=== PATIENT | female | born 1990 | race Caucasian/White ===

== ENCOUNTER 2016-03-14 03:26 | Inpatient (IN) | END 2016-03-16 14:30 | disposition home or self-care (01) | DRG 775 | DX: O69.81X0 Labor and delivery complicated by cord around neck, without compression, not applicable or unspecified (principal); Z37.0 Single live birth; Z3A.38 38 weeks gestation of pregnancy ==

== ENCOUNTER 2016-11-18 16:19 | Emergency (ER) | payer OTHER ==
[~2016-11-18] VITALS: Ht 152.4 cm; Wt 53.5 kg
[2016-11-18 16:22] VITALS: Ht 152.4 cm; Wt 53.5 kg
--- NOTE | 2016-11-18 16:53 | ERD ---
ER Documentation Chief Complaint Date/Time DATE: 11/18/16 TIME: 16:49 Chief Complaint vag bleed started today (6 weeks ) HPI This is a 26-year-old female presenting to emerge department with vaginal bleeding while . Patient states she believes she is about 6 weeks with last menstrual period 10/06/2012. Patient is a A0. Patient states earlier today she had some pelvic cramping and some passage of bright red blood clots. Patient states she does not have regular menstrual flow. No vaginal discharge. No nausea or vomiting. Patient's FILLING HAND is Dr. Bateman and has not had an Ultrasound done yet she has an appointment with him on December 02, 2016. Patient had no complications with previous . No complications at . ROS All systems reviewed and are negative except as per history of present illness. Medications Home Meds No Active Prescriptions or Reported Meds Allergies Allergies: Coded Allergies: No Known Allergy (Unverified , 03/14/16) PMhx/Soc Medical and Surgical Hx: pt denies Medical Hx, pt denies Surgical Hx History of Surgery: No Hx Miscellaneous Medical Probl: No (NO MEDICAL PROBLEMS) Hx Alcohol Use: No Hx Substance Use: No Hx Tobacco Use: No Physical Exam Vitals Vital Signs Date Time Temp Pulse Resp B/P Pulse Ox O2 Delivery O2 Flow Rate FiO2 11/18/16 16:22 98.4 68 18 113/70 97 Physical Exam Const: alert, anxious Head: Atraumatic Eyes: Normal Conjunctiva ENT: Normal External Ears, Nose and Mouth. Neck: Full range of motion..~ No meningismus. Resp: Clear to auscultation bilaterally no wheezing, rhonchi or crackles. Cardio: Regular rate and rhythm, no murmurs Abd: Soft, non tender, non distended. Normal bowel sounds Skin: No petechiae or rashes Back: No midline or flank tenderness. No CVA tenderness. Ext: No cyanosis, or edema Neur: Awake and alert Psych: Normal Mood and Affect Result Diagram: 11/18/16 2597 Results 24 hrs Laboratory Tests Test 11/18/16 16:48 11/18/16 16:55 Urine Color YELLOW Urine Clarity SLIGHTLY CLOUDY Urine pH 5.0 Urine Specific [place] 1.018 Urine Ketones NEGATIVEmg/dL Urine Nitrite NEGATIVEmg/dL Urine Bilirubin NEGATIVEmg/dL Urine Urobilinogen NEGATIVEmg/dL Urine Leukocyte Esterase NEGATIVELeu/ul Urine Microscopic RBC > 182/HPF Urine Microscopic WBC 7/HPF Urine Squamous Epithelial Cells FEW/HPF Urine Mucus FEW/HPF Urine Hemoglobin 3+mg/dL Urine Glucose NEGATIVEmg/dL Urine Total Protein 1+mg/dl White Blood Count 9.810^3/ul Red Blood Count 4.3910^6/ul Hemoglobin 12.5g/dl Hematocrit 37.3% Mean Corpuscular Volume 85.0fl Mean Corpuscular Hemoglobin 28.5pg Mean Corpuscular Hemoglobin Concent 33.5g/dl Red Cell Distribution Width 12.5% Platelet Count 52984^3/UL Mean Platelet Volume 9.9fl Neutrophils % 61.3% Lymphocytes % 31.4% Monocytes % 7.1% Eosinophils % 0.0% Basophils % 0.1% Nucleated Red Blood Cells % 0.0/100WBC Neutrophils # 6.010^3/ul Lymphocytes # 3.110^3/ul Monocytes # 0.710^3/ul Eosinophils # 0.010^3/ul Basophils # 0.010^3/ul Nucleated Red Blood Cells # 0.010^3/ul Beta HCG, Quantitative 1128.8mIU/ml Procedures/[place] [id number] Radiology Main Line: [phone] DIAGNOSTIC IMAGING REPORT Patient: ROGERS SERRATO : 1990 Age: 26 Sex: F MR #: [id number] DOS: 11/18/16 1648 Ordering MD: TRUE DIEHL NP [facility] Room/Bed: PROCEDURE: US OB. CLINICAL INDICATION: Vaginal bleeding. Positive TECHNIQUE: Transabdominal and transvaginal views of the pelvis are available for review. COMPARISON: No prior studies are available for comparison. FINDINGS: Uterus: No evidence of masses and normal in size estimated at 7.2 x 4.7 x 3.9 cm. Endometrial cavity: Intrauterine gestational sac, yolk sac and pole are present with the following information: [place]-rump length: 0.31 cm heart rate: NOT DETECTED Gestational sac: 0.64 cm Ultrasound estimated gestational age: 5 weeks 4 days No evidence of subchorionic hemorrhage Right ovary/adnexa: Ovarian size is normal estimated at 2.8 x 1.6 x 1.5 cm. No ovarian or adnexal mass lesion is seen. Left ovary/adnexa: Ovarian size normal estimated at 0.8 x 1.4 x 1.1 cm. No ovarian or adnexal mass lesion is seen. Cul-de-sac: There is no free fluid. RPTAT:HJJR IMPRESSION: 1. Lack of detectable heart tones concerning for embryonic demise at an estimated gestational age of 5 days 4 days. Follow-up evaluation is recommended with correlation to serial serum beta HCG levels and possible repeat ultrasound. 2. Unremarkable ovaries and adnexa. MDM: This is a 26-year-old female presenting to emergency department for vaginal bleeding while . Patient believes she is about 6 weeks with last menstrual period 10/06/2016. Patient passed multiple bright red blood clots. Labs and urine ordered. CBC shows no significant anemia or infection. Type and Rh factor is . HCG is. UA shows. OB ultrasound reviewed by radiologist as a detectable heart tones concerning for embryonic demise at an estimated gestational age of 5 weeks and 4 days. Follow-up evaluation is recommended with correlation to serial serum beta-hCG levels and possible repeat ultrasound. Unremarkable ovaries and adnexa. Vital signs are stable. Differential diagnosis includes but not limited to ectopic , threatened , missed , normal , subchorionic hemorrhage , ruptured ovarian cyst, UTI or pyelonephritis. Instructed patient to return in 2 days for repeat lab work and ultrasound. Patient is appropriate for outpatient management. Instructed patient to follow- up here in the ED in 2 days. Return to ED sooner for any high fever, chest pain , difficulty breathing, shortness breath, wheezing, vomiting, diarrhea, abdominal pain or any new or worsening symptoms. Patient verbalizes understanding. All questions answered at discharge. Disclaimer: Inadvertent spelling and grammatical errors are likely due to EHR/ dictation software use and do not reflect on the overall quality of patient care. Also, please note that the electronic time recorded on this note does not necessarily reflect the actual time of the patient encounter. Departure Diagnosis: Primary Impression: Vaginal bleeding in patient at less than 20 weeks gestation Condition: Stable TRUE BRYANT NP Nov 18, 2016 16:53
[2016-11-18 17:09] LABS: BASOPHILS % 0.1 % (0.0-2.0); HEMATOCRIT 37.3 % (37.0-47.0); HEMOGLOBIN 12.5 g/dl (12.0-16.0); LYMPHOCYTES # 3.1 10^3/ul (0.8-2.9); LYMPHOCYTES % 31.4 % (15.0-51.0); MEAN CORPUSCULAR HEMOGLOBIN 28.5 pg (29.0-33.0); MEAN CORPUSCULAR HGB CONC 33.5 g/dl (32.0-37.0); MEAN PLATELET VOLUME 9.9 fl (7.4-10.4); MONOCYTE # 0.7 10^3/ul (0.3-0.9); MONOCYTES % 7.1 % (0.0-11.0); NEUTROPHILS % 61.3 % (39.0-77.0); PLATELET COUNT 279 10^3/UL (140-415); RED BLOOD COUNT 4.39 10^6/ul (4.20-5.40); RED CELL DISTRIBUTION WIDTH 12.5 % (11.5-14.5); WHITE BLOOD COUNT 9.8 10^3/ul (4.8-10.8)
[2016-11-18 17:19] LABS: ADD UMIC YES; UR ASCORBIC ACID NEGATIVE (NEGATIVE); UR BILIRUBIN (Dip) NEGATIVE (NEGATIVE); UR BLOOD (Dip) 3+ mg/dL (NEGATIVE); UR CLARITY SLIGHTLY CLOUDY (CLEAR); UR COLOR YELLOW (YELLOW); UR GLUCOSE (Dip) NEGATIVE (NEGATIVE); UR KETONES (Dip) NEGATIVE (NEGATIVE); UR LEUKOCYTE ESTERASE (Dip) NEGATIVE Leu/ul (NEGATIVE); UR MUCUS FEW /HPF (NONE SEEN); UR NITRITE (Dip) NEGATIVE (NEGATIVE); UR RBC > 182 /HPF (0-5); UR SPECIFIC GRAVITY (Dip) 1.018 (1.003-1.030); UR SQUAMOUS EPITHELIAL CELL FEW /HPF (FEW); UR TOTAL PROTEIN (Dip) 1+ mg/dl (NEGATIVE); UR UROBILINOGEN (Dip) NEGATIVE (NEGATIVE)
--- NOTE | 2016-11-18 17:57 | RADRPT ---
PROCEDURE: US OB. CLINICAL INDICATION: Vaginal bleeding. Positive TECHNIQUE: Transabdominal and transvaginal views of the pelvis are available for review. COMPARISON: No prior studies are available for comparison. FINDINGS: Uterus: No evidence of masses and normal in size estimated at 7.2 x 4.7 x 3.9 cm. Endometrial cavity: Intrauterine gestational sac, yolk sac and pole are present with the foll owing information: [place]-rump length:0.31 cm heart rate:NOT DETECTED Gestational sac:0.64 cm Ultrasound estimated gestational age:5 weeks 4 days No evidence of subchorionic hemorrhage Right ovary/adnexa: Ovarian size is normal estimated at 2.8 x 1.6 x 1.5 cm. No ovarian or adnexal mass lesion is seen. Left ovary/adnexa: Ovarian size normal estimated at 0.8 x 1.4 x 1.1 cm. No ovarian or adnexal mass lesion is seen. Cul-de-sac: There is no free fluid. RPTAT:HJJR IMPRESSION: 1. Lack of detectable heart tones concerning for embryonic demise at an estimated gestational age o f 5 days 4 days. Follow-up evaluation is recommended with correlation to serial serum beta HCG level s and possible repeat ultrasound. 2. Unremarkable ovaries and adnexa. Physician Christopher Date Time Electronically viewed and signed by Physician Christopher on 11/18/2016 17:57 JR/
== END 2016-11-18 18:14 | disposition home or self-care (01) ==
LOC: FTE 16:19
DX: O20.9 Hemorrhage in early pregnancy, unspecified (principal); R10.2 Pelvic and perineal pain; Z3A.01 Less than 8 weeks gestation of pregnancy
CPT/HCPCS: 76801; 76817; 81001; 84702; 85025; 86900; 86901

== ENCOUNTER 2016-11-20 11:16 | Emergency (ER) | payer OTHER ==
[~2016-11-20] VITALS: Ht 157.5 cm; Wt 54.0 kg
[2016-11-20 11:18] VITALS: Ht 157.5 cm; Wt 54.0 kg
[2016-11-20 12:12] LABS: BASOPHILS % 0.1 % (0.0-2.0); HEMATOCRIT 40.1 % (37.0-47.0); HEMOGLOBIN 13.3 g/dl (12.0-16.0); LYMPHOCYTES # 2.8 10^3/ul (0.8-2.9); LYMPHOCYTES % 32.6 % (15.0-51.0); MEAN CORPUSCULAR HEMOGLOBIN 28.6 pg (29.0-33.0); MEAN CORPUSCULAR HGB CONC 33.2 g/dl (32.0-37.0); MEAN CORPUSCULAR VOLUME 86.2 fl (82.0-101.0); MEAN PLATELET VOLUME 9.7 fl (7.4-10.4); MONOCYTE # 0.5 10^3/ul (0.3-0.9); MONOCYTES % 6.3 % (0.0-11.0); NEUTROPHIL # 5.2 10^3/ul (1.6-7.5); NEUTROPHILS % 60.9 % (39.0-77.0); PLATELET COUNT 287 10^3/UL (140-415); RED BLOOD COUNT 4.65 10^6/ul (4.20-5.40); RED CELL DISTRIBUTION WIDTH 12.7 % (11.5-14.5); WHITE BLOOD COUNT 8.5 10^3/ul (4.8-10.8)
[2016-11-20 12:21] LABS: ADD UMIC YES; UR ASCORBIC ACID NEGATIVE (NEGATIVE); UR BILIRUBIN (Dip) NEGATIVE (NEGATIVE); UR BLOOD (Dip) 3+ mg/dL (NEGATIVE); UR CLARITY SLIGHTLY CLOUDY (CLEAR); UR COLOR YELLOW (YELLOW); UR GLUCOSE (Dip) NEGATIVE (NEGATIVE); UR KETONES (Dip) NEGATIVE (NEGATIVE); UR LEUKOCYTE ESTERASE (Dip) TRACE Leu/ul (NEGATIVE); UR MUCUS MANY /HPF (NONE SEEN); UR NITRITE (Dip) NEGATIVE (NEGATIVE); UR RBC > 182 /HPF (0-5); UR SPECIFIC GRAVITY (Dip) 1.028 (1.003-1.030); UR SQUAMOUS EPITHELIAL CELL FEW /HPF (FEW); UR TOTAL PROTEIN (Dip) 1+ mg/dl (NEGATIVE); UR UROBILINOGEN (Dip) 1+ mg/dL (NEGATIVE)
--- NOTE | 2016-11-20 13:45 | RADRPT ---
PROCEDURE: OB Ultrasound. CLINICAL INDICATION: Positive test. Vaginal bleeding. TECHNIQUE: Ultrasound of the pelvis was performed with transabdominal and transvaginal sonography in the axial and sagittal planes. COMPARISON: OB ultrasound dated 11/18/2016 which demonstrated a single intrauterine gestational sa c with pole and no heart motion. FINDINGS: There is a single irregular intrauterine gestational sac within the lower uterine segment. po le and yolk sac are not visualized. Mean sac diameter is 0.61 cm. Menstrual age by ultrasound dates is 5 weeks 1 day. The right ovary appears normal measuring 2.5 x 1.3 x 2.1 cm. The left ovary appears normal measuring 2.3 x 1.1 x 1.4 cm. Color Doppler and pulsed Doppler sonography demonstrate normal flow to the ovaries. There is no other pelvic mass or free fluid. IMPRESSION: 1. Single irregular intrauterine gestational sac within the lower uterine segment. pole and yolk sac are not visualized. Since the prior study demonstrated pole and no heart motion, the findings are consistent with failed . 2. Otherwise unremarkable study. RPTAT: QQ .Merrill Phoenix MD, MD Date Time Electronically viewed and signed by .Merrill Phoenix MD, on 11/20/2016 13:44 .R/
--- NOTE | 2016-11-20 14:30 | ERD ---
ER Documentation Chief Complaint Date/Time DATE: 11/20/16 TIME: 14:27 Chief Complaint follow up for VB X 2 days and 5 weeks 4 days . HPI 26-year-old female coming in complaining of vaginal bleeding. Patient is . A0. Patient is not having severe abdominal pain. Believes she is about 5 weeks . Patient was seen 2 days ago and told that she may have miscarriage and was told to return. ROS All systems reviewed and are negative except as per history of present illness. Medications Home Meds No Active Prescriptions or Reported Meds Allergies Allergies: Coded Allergies: No Known Allergy (Unverified , 03/14/16) PMhx/Soc History of Surgery: No Hx Miscellaneous Medical Probl: No Hx Alcohol Use: No Hx Substance Use: No Hx Tobacco Use: No Physical Exam Vitals Vital Signs Date Time Temp Pulse Resp B/P Pulse Ox O2 Delivery O2 Flow Rate FiO2 11/20/16 11:18 98.5 66 18 108/61 99 Physical Exam GENERAL: The patient is well-appearing, well-nourished, in no acute distress CHEST: Clear to auscultation bilaterally. There are no rales, wheezes or rhonchi. HEART: Regular rate and rhythm. No murmurs, clicks, rubs or gallops. No S3 or S4. ABDOMEN: Soft nontender abdomen. Normoactive bowel sounds. No distention. No organomegaly. : Deferred Result Diagram: 11/20/16 1152 Results 24 hrs Laboratory Tests Test 11/20/16 11:45 11/20/16 11:52 Urine Color YELLOW Urine Clarity SLIGHTLY CLOUDY Urine pH 5.0 Urine Specific [place] 1.028 Urine Ketones NEGATIVEmg/dL Urine Nitrite NEGATIVEmg/dL Urine Bilirubin NEGATIVEmg/dL Urine Urobilinogen 1+mg/dL Urine Leukocyte Esterase TRACELeu/ul Urine Microscopic RBC > 182/HPF Urine Microscopic WBC 6/HPF Urine Squamous Epithelial Cells FEW/HPF Urine Mucus MANY/HPF Urine Hemoglobin 3+mg/dL Urine Glucose NEGATIVEmg/dL Urine Total Protein 1+mg/dl White Blood Count 8.510^3/ul Red Blood Count 4.6510^6/ul Hemoglobin 13.3g/dl Hematocrit 40.1% Mean Corpuscular Volume 86.2fl Mean Corpuscular Hemoglobin 28.6pg Mean Corpuscular Hemoglobin Concent 33.2g/dl Red Cell Distribution Width 12.7% Platelet Count 11041^3/UL Mean Platelet Volume 9.7fl Neutrophils % 60.9% Lymphocytes % 32.6% Monocytes % 6.3% Eosinophils % 0.0% Basophils % 0.1% Nucleated Red Blood Cells % 0.0/100WBC Neutrophils # 5.210^3/ul Lymphocytes # 2.810^3/ul Monocytes # 0.510^3/ul Eosinophils # 0.010^3/ul Basophils # 0.010^3/ul Nucleated Red Blood Cells # 0.010^3/ul Beta HCG, Quantitative 129.5mIU/ml Procedures/[facility] DIAGNOSTIC IMAGING REPORT Patient: ROGERS SERRATO : 1990 Age: 26 Sex: F MR #: [id number] DOS: 11/20/16 1138 Ordering MD: HORTENCIA SCOTT PA-C Location: [facility] Room/Bed: PROCEDURE: OB Ultrasound. CLINICAL INDICATION: Positive test. Vaginal bleeding. TECHNIQUE: Ultrasound of the pelvis was performed with transabdominal and transvaginal sonography in the axial and sagittal planes. COMPARISON: OB ultrasound dated 11/18/2016 which demonstrated a single intrauterine gestational sac with pole and no heart motion. FINDINGS: There is a single irregular intrauterine gestational sac within the lower uterine segment. pole and yolk sac are not visualized. Mean sac diameter is 0.61 cm. Menstrual age by ultrasound dates is 5 weeks 1 day. The right ovary appears normal measuring 2.5 x 1.3 x 2.1 cm. The left ovary appears normal measuring 2.3 x 1.1 x 1.4 cm. Color Doppler and pulsed Doppler sonography demonstrate normal flow to the ovaries. There is no other pelvic mass or free fluid. IMPRESSION: 1. Single irregular intrauterine gestational sac within the lower uterine segment. pole and yolk sac are not visualized. Since the prior study demonstrated pole and no heart motion, the findings are consistent with failed . 2. Otherwise unremarkable study. MDM: 26-year-old female complaining of vaginal bleeding. Patient is experiencing a miscarriage. Her beta quant levels have decreased since her visit 2 days ago. Patient's hemoglobin is stable and patient is not experiencing have a clot bleeding site do not feel that there is indication for transfusion at this time. Patient is Rh+ not require RhoGam injection. Patient 's urine is within normal limits. Patient is told to follow-up with [facility] within 1-2 days for close evaluation. I have low suspicion for ectopic as failed is noted within the uterus. Patient is told if symptoms change or worsen or she begins feeling dizzy or faint to return to the emergency room. Patient understood and complied with plan. All questions answered at discharge. Departure Diagnosis: Primary Impression: Miscarriage Condition: Stable Patient Instructions: Miscarriage Additional Instructions: FOLLOW UP WITH YOUR PRIMARY CARE PHYSICIAN TOMORROW.Return to this facility if you are not improving as expected. JENISE SCOTT PA-C Nov 20, 2016 14:30
== END 2016-11-20 14:14 | disposition home or self-care (01) ==
LOC: FTE 11:16
DX: O03.9 Complete or unspecified spontaneous abortion without complication (principal); R10.2 Pelvic and perineal pain
CPT/HCPCS: 36415; 76801; 76817; 81001; 84702; 85025

== ENCOUNTER 2017-11-23 11:46 | Emergency (ER) | END 2017-11-23 14:00 | disposition home or self-care (01) ==

== ENCOUNTER 2018-03-06 16:09 | Outpatient (CLI) | payer OTHER ==
[~2018-03-06] VITALS: Ht 154.9 cm; Wt 62.7 kg
[~2018-03-06 16:09] MED LIST: CEPH-443 PO
[2018-03-06 16:15] VITALS: Ht 154.9 cm; Wt 62.7 kg
[2018-03-06] MEDS: LACTATED RINGER'S 1,000 ML IV SCH ×2 (17:28→18:02)
--- NOTE | 2018-03-06 20:46 | PN ---
Triage Information Date/Time Mar 06, 2018 Reason for visit: Abd/pelvic pain Weeks of Gestation 34w /Para 3/1 Diabetes: none Hypertention: none Additional information Pt c/o right-sided pain that radiates to pelvic midline. No bleeding or leaking. +FM PMHx: none. PSHx: none. POBHx: x 1. NKDA. Objective 117/63 T=98.2 Heart Rate: 120's Heart Rate Comments Accels to 160 bpm. No decels. Contractions: < 5 Minutes Apart Exam 60%/1/-3 Results/Medications Results 24 hrs Laboratory Tests Test 03/06/18 18:00 Urine Color YELLOW Urine Clarity CLEAR Urine pH 6.0 Urine Specific [place] 1.018 Urine Ketones NEGATIVE Urine Nitrite NEGATIVE Urine Bilirubin NEGATIVE Urine Urobilinogen NEGATIVE Urine Leukocyte Esterase NEGATIVE Urine Microscopic RBC 2 Urine Microscopic WBC 0 Urine Mucus FEW A Urine Hemoglobin 2+ H Urine Glucose NEGATIVE Urine Total Protein NEGATIVE Urine Opiates Screen Negative Urine Barbiturates Negative Urine Amphetamines Screen Negative Urine Benzodiazepines Screen Negative Urine Cocaine Screen Negative Urine Cannabinoids Negative Medications Current Medications Lactated Ringer's 1,000 ml @ 125 mls/hr Q8H IV Last administered on 03/06/18at 18:02; Admin Dose 125 MLS/HR; Start 03/06/18 at 16:30 Imaging Results EFW 2292 grams. VTX. BPP 09/28 with an CHIDI of 22. Disposition: Discharge Assessment/Plan A: IUP at 34 weks. False labor. P: After IV hydration the pt's contractions minimized greatly and she was only having an occasional contraction and was feeling much better. D/C home with labor precautions. FLACA OJEDA MD Mar 06, 2018 20:46
--- NOTE | 2018-03-07 05:11 | TRIAGE ---
OB Triage Datetime Report Generated by CPN: 03/07/2018 04:12 Datetime: 03/06/2018 20:28 Stage of : OB Triage Monitor Mode: External Quality: Mild Pattern: Normal: <= 5 Contractions in 10 Minutes Resting Tone [place]: Relaxed Heart Rate FHR Baseline Rate: 130 Monitor Mode: External US FHR Baseline Changes: No Baseline Change Variability: Moderate 6-25 bpm Accelerations: 15X15 Decelerations: None Category: Category I Datetime: 03/06/2018 19:54 Stage of : OB Triage Monitor Mode: External Duration (sec)2399: 20-30sec Quality: Mild Pattern: Normal: <= 5 Contractions in 10 Minutes Resting Tone [place]: Relaxed Heart Rate FHR Baseline Rate: 130 Monitor Mode: External US FHR Baseline Changes: No Baseline Change Variability: Moderate 6-25 bpm Accelerations: 15X15 Decelerations: None Category: Category I Pain Assessment Pain Scale: 2 Pain Presence: Intermittent Pain Type: Cramping Pain Location: Abdomen Datetime: 03/06/2018 19:28 Stage of : OB Triage Monitor Mode: External Quality: Mild Pattern: Normal: <= 5 Contractions in 10 Minutes Resting Tone [place]: Relaxed Heart Rate FHR Baseline Rate: 130 Monitor Mode: External US FHR Baseline Changes: No Baseline Change Variability: Moderate 6-25 bpm Accelerations: 15X15 Decelerations: None Category: Category I Datetime: 03/06/2018 18:36 Labor Evaluation Frequency: OCC Monitor Mode: External Quality: Mild Pattern: Normal: <= 5 Contractions in 10 Minutes Resting Tone [place]: Relaxed Heart Rate FHR Baseline Rate: 135 Monitor Mode: External US FHR Baseline Changes: No Baseline Change Variability: Moderate 6-25 bpm Accelerations: 15X15 Decelerations: None Category: Category I Pain Presence: None/Denies Datetime: 03/06/2018 17:36 Labor Evaluation Frequency: 2-4 Monitor Mode: External Duration (sec)2399: 50-80 Quality: Moderate Pattern: Normal: <= 5 Contractions in 10 Minutes Resting Tone [place]: Relaxed Heart Rate FHR Baseline Rate: 130 Monitor Mode: External US FHR Baseline Changes: No Baseline Change Variability: Moderate 6-25 bpm Accelerations: 15X15 Decelerations: None Category: Category I Pain Assessment Pain Scale: 4 Pain Presence: Intermittent Pain Type: Cramping Pain Location: Abdomen Pain Relief Measures: Comfort Measures Datetime: 03/06/2018 17:25 Vaginal Exam Dilatation (cms): 1.0 Effacement (%): 60 Station: -3 Datetime: 03/06/2018 16:18 EGA: 34.0 Datetime: 03/06/2018 16:17 Labor Evaluation Frequency: 2-4 Monitor Mode: External Duration (sec)2399: 50-80 Quality: Moderate Pattern: Normal: <= 5 Contractions in 10 Minutes Resting Tone [place]: Relaxed Heart Rate FHR Baseline Rate: 130 Monitor Mode: External US FHR Baseline Changes: No Baseline Change Variability: Moderate 6-25 bpm Accelerations: 15X15 Decelerations: None Category: Category I Pain Assessment Pain Scale: 6 Pain Presence: Intermittent Pain Type: Cramping Pain Location: Abdomen Pain Relief Measures: Comfort Measures Datetime: 03/06/2018 16:05 Stage of : OB Triage Assessment Type: Triage Maternal Assessment Level of Consciousness: Fully Conscious DTR's/Clonus: DTRs 2+; No Clonus Headache: Denies Blurred Vision: No Respiratory Effort: Unlabored; Regular Rhythm; Equal Expansion Breath Sounds, Left: Clear and Equal Breath Sounds, Right: Clear and Equal Nausea/Vomiting: Denies RUQ Epigastric Pain: Denies Facial Edema: None Temperature Route: Oral Fall Risk Assessment History of Falling: (0) No Secondary Diagnosis: (0) No Ambulatory Aid: (0) Bedrest/Nurse Assist IV Therapy: (0) No Gait: (0) Normal/Bedrest/Immobile Mental Status: (0) Oriented to Own Ability Fall Score: 0 Fall Risk Score Definition: No Risk: No action required Datetime: 03/06/2018 16:00 Time of Arrival: 03/06/2018 16:00 Arrived By: Ambulatory Arrived From: Home Chief Complaint: RIGH ABD PAIN Movement: Present Contractions: Denies/Absent Rupture of Membranes: Denies Vaginal Bleeding: None Vaginal Discharge: Denies Recent Sexual Intercouse: Denies Abdominal Trauma: Not Applicable Patient Complaints: Other Time Provider Notified: 03/06/2018 16:23 Provider Notified: RIRI Initial Plan: NST,BPP, URINE DRUG, UA,CX LENGHT, VE, EFW, IV HYDRATION
== END 2018-03-06 20:40 | disposition home or self-care (01) ==
LOC: OBT 16:09 → L-D 16:10 → OBT 20:40
PROVIDERS: ATTEND Obstetrics & Gynecology
DX: O26.893 Other specified pregnancy related conditions, third trimester (principal); Z3A.34 34 weeks gestation of pregnancy; R10.2 Pelvic and perineal pain
CPT/HCPCS: 36415; 76815; 76817; 76818; 80307; 81001; 96360; 96361; G0463; J7120

== ENCOUNTER 2018-04-13 10:08 | Outpatient (CLI) | payer OTHER ==
[~2018-04-13] VITALS: Ht 154.9 cm; Wt 66.0 kg
[2018-04-13 12:03] VITALS: Ht 154.9 cm; Wt 66.0 kg
[2018-04-13] MEDS ORDERED: PREN-93 PO (12:03)
[2018-04-13 12:04] VITALS: BP 120/64; PULSE 76; RESP 20
--- NOTE | 2018-04-13 13:45 | TRIAGE ---
OB Triage Datetime Report Generated by CPN: 04/13/2018 13:45 Datetime: 04/13/2018 12:40 Heart Rate Comments: U/S TECH AT BEDSIDE Datetime: 04/13/2018 11:54 Vaginal Exam Dilatation (cms): 1.0 Effacement (%): 60 Station: -2 Exam By: sissy Membrane Status: Intact Vaginal Bleeding: None Cervix, Consistency: Soft Cervix, Position: Midposition Presentation 'A': Cephalic Datetime: 04/13/2018 11:42 Time of Arrival: 04/13/2018 10:07 EGA: 39.1 Arrived By: Ambulatory Arrived From: Home Chief Complaint: ucs q10-15 min Movement: Present Contractions: Irregular Rupture of Membranes: Denies Vaginal Bleeding: None Vaginal Discharge: Denies Recent Sexual Intercouse: Denies Abdominal Trauma: Not Applicable Patient Complaints: Cramping Time Provider Notified: 04/13/2018 11:59 Provider Notified: ESHAGHIAN Initial Plan: nst, sve Datetime: 04/13/2018 11:35 Assessment Type: Triage Maternal Assessment Level of Consciousness: Fully Conscious DTR's/Clonus: DTRs 2+; No Clonus Headache: Denies Blurred Vision: No Respiratory Effort: Unlabored; Regular Rhythm; Equal Expansion Nausea/Vomiting: Denies RUQ Epigastric Pain: Denies Lower Extremities Edema: None Degree: None Upper Extremities Edema: None Degree: None Facial Edema: None Fall Risk Assessment History of Falling: (0) No Secondary Diagnosis: (0) No Ambulatory Aid: (0) Bedrest/Nurse Assist IV Therapy: (0) No Gait: (0) Normal/Bedrest/Immobile Mental Status: (0) Oriented to Own Ability Fall Score: 0 Fall Risk Score Definition: No Risk: No action required Datetime: 03/06/2018 16:18 EGA: 33.5 Datetime: 03/06/2018 16:05 Fall Score: 0 Fall Risk Score Definition: No Risk: No action required
--- NOTE | 2018-04-13 14:45 | HP ---
Date/Time of Note Date/Time of Note DATE: 04/13/18 TIME: 14:43 OB - History Hx of Present Free Text/Dictation April 13, 2018 : 3 Para: 1 Abnormal Ultrasound Findings: 28-year-old with IUP at 39 weeks and 1 day presented with complaint of contractions every 10-15 minutes. She denies any leaking of fluid, vaginal bleeding or decreased movement. Denies any comp occasions during the course. Past Family/Social History * Past Medical, Surgical, Family and Obstetric Histories reviewed from chart. OB Admission Exam Vital Signs Vital Signs Vital Signs Date Temp Pulse Resp B/P (MAP) Pulse Ox O2 O2 Flow FiO2 Time Delivery Rate 04/13/18 98.2 76 20 120/64 Room Air 12:04 (82) Physical Exam HEENT: WNL Lungs: Clear Abdomen: WNL Extremities: Normal Cervical Dilatation: 1cm Effacement: 75% Station: -2 Membranes: Intact Heart Rate: 130's Accelerations: Accelerations Present Decelerations: No Decelerations Varibility: Moderate Contractions on Admission: >10 Minutes Apart Intensity: Mild Last 72 hourBlood Glucose PROCEDURE: US CHIDI CLINICAL INDICATION: Amniotic fluid index. well-being. TECHNIQUE: Limited OB ultrasound was performed to determine four-quadrant amniotic fluid index. COMPARISON: 03/06/2018 FINDINGS: There is a single live intrauterine . Normal cardiac activity is identified at a rate of 126 beats per minute. presentation is cephalic. Placenta is anterior grade 1 to II. Four quadrant CHIDI = 14.83 cm IMPRESSION: Four quadrant CHIDI = 14.83 cm OB Assessment/Plan Other Assessment: IUP at 39 weeks and 1 day False labor pain No cervical change noted during observation testing reassuring. NST: Category 1 and reactive CHIDI within normal limits Patient will be discharged home with follow-up tomorrow with primary OB office strict labor precautions kick count discussed with patient All questions were answered to patient's best satisfaction JASE DUCKWORTH MD Apr 13, 2018 14:45
== END 2018-04-13 13:19 | disposition home or self-care (01) ==
LOC: OBT 10:08 → L-D 10:10 → OBT 13:19
PROVIDERS: ATTEND Obstetrics & Gynecology
DX: O62.9 Abnormality of forces of labor, unspecified (principal); Z3A.39 39 weeks gestation of pregnancy
CPT/HCPCS: 76815; G0463

== ENCOUNTER 2018-04-17 09:25 | Inpatient (IN) | payer OTHER ==
[~2018-04-17] VITALS: Ht 154.9 cm; Wt 65.5 kg
[~2018-04-17 09:25] MED LIST changes: -CEPH-443 PO; +PREN-93 PO
[2018-04-21 10:45] VITALS: BP 118/74; RESP 20
[2018-04-21 10:46] VITALS: Ht 154.9 cm; Wt 65.5 kg
[2018-04-21] MEDS ORDERED: OXYTOCIN 30 UNITS/LR 500 ML IV PRN (11:00)
[2018-04-21] MEDS ORDERED: BUTORPHANOL 2 MG INJ IV PRN (11:00)
[2018-04-21] MEDS ORDERED: LIDOCAINE 1% (MPF) 30 ML INJ INJ PRN (11:00)
[2018-04-21] MEDS ORDERED: OXYTOCIN 30 UNITS/LR 500 ML IV SCH ×3 (11:00→11:30)
[2018-04-21] MEDS ORDERED: CARBOPROST 250 MCG INJ IM PRN (11:00)
[2018-04-21] MEDS ORDERED: METHYLERGONOVINE 0.2 MG INJ IM PRN (11:00)
[2018-04-21] MEDS ORDERED: IBUPROFEN 600 MG TAB PO PRN (11:00)
[2018-04-21] MEDS ORDERED: MISOPROSTOL 200 MCG TAB PR PRN (11:00)
--- NOTE | 2018-04-21 12:57 | PREAC ---
Date/Time of Note Date/Time of Note DATE: 04/21/18 TIME: 12:55 Anesthesia Eval and Record Evaluation Time Pre-Procedure Interview DATE: 04/21/18 TIME: 12:55 Age 28 Sex female NPO: 8 hrs Preoperative diagnosis IUP Planned procedure L&D Epidural Past Medical History Past Medical History: None Surgery & Anesthesia Issues No known issue Meds Anticoagulation: No Beta Leida within 24 hr: No Reason Beta Leida not given: Pt. not on B-Leida Reported Medications Vit No.124/Iron/FA ( Vitamin Tablet) 1 Each Tablet, 1 EACH PO DAILY, TAB 04/13/18 Current Medications Lactated Ringer's 1,000 ml @ 125 mls/hr Q8H IV ; Start 04/21/18 at 10:48 Butorphanol Tartrate (Stadol) 2 mg Q2H PRN IV .PAIN; Start 04/21/18 at 11:00 Lidocaine (Xylocaine 1% (Mpf)) 30 ml ONCE PRN INJ .EPISIOTOMY; Start 04/21/18 at 11:00 Oxytocin/Lactated Ringer's 500 ml @ 500 mls/hr ONCE POST IV ; Start 04/21/18 at 11:00 Oxytocin/Lactated Ringer's 500 ml @ 125 mls/hr POST IV ; Start 04/21/18 at 11:00 Ibuprofen (Motrin) 600 mg ONCE PRN PO .PAIN 1-5; Start 04/21/18 at 11:00 Oxytocin/Lactated Ringer's 500 ml @ 0 mls/hr ONCE PRN IV .VAGINAL BLEEDING; Start 04/21/18 at 11:00 Methylergonovine Maleate (Methergine) 0.2 mg ONCE PRN IM .VAGINAL BLEEDING; Start 04/21/18 at 11:00 Carboprost Tromethamine (Hemabate) 250 mcg ONCE PRN IM .VAGINAL BLEEDING; Start 04/21/18 at 11:00 Misoprostol (Cytotec) 1,000 mcg ONCE PRN TN .VAGINAL BLEEDING; Start 04/21/18 at 11:00 Oxytocin/Lactated Ringer's 500 ml @ 0 mls/hr Q0M IV ; Start 04/21/18 at 11:30 Meds reviewed: Yes Allergies Coded Allergies: No Known Allergy (Unverified , 04/21/18) Allergies Reviewed: Yes Labs/Studies Labs Reviewed: Reviewed by anesthesiologist Result Diagram: 04/21/18 1025 Laboratory Tests 04/21/18 10:25 Blood Bank Test 04/21/18 10:25 Antibody Screen NEGATIVE Blood Type A POSITIVE Rh Immune Globulin Candidate NO test: Positive Studies: ECG Pre-procedure Exam Last vitals Vital Signs Date Temp Pulse Resp B/P (MAP) Pulse Ox O2 O2 Flow FiO2 Time Delivery Rate 04/21/18 98.9 20 118/74 Room Air 10:45 (89) Airway: Adequate mouth opening, Adequate thyromental dist Mallampati: Mallampati II Teeth: Normal Lung: Normal Heart: Normal ASA Physical Status ASA physical status: 2 Emergency: None Planned Anesthetic Neuraxial: Epidural Planned Pain Management Epidural, Parenteral pain med Pre-operative Attestations Prior to commencing anesthesia and surgery, the patient was re-evaluated, there was verification of: *The patient's identity *The results of appropriate recent lab work and preoperative vital signs *The above evaluation not changing prior to induction *Anesthetic plan, risk benefits, alternative and complications discussed with patient/family; questions answered; patient/family understands, accepts and wishes to proceed. NANCY KUHN MD Apr 21, 2018 12:57
[2018-04-21] MEDS: LACTATED RINGER'S 1,000 ML IV SCH ×2 (13:26→18:23)
[2018-04-21] MEDS ORDERED: FENTAnyl 2MCG/ML-ROPIV 0.2% 100 ML ONE (13:29)
[2018-04-21] MEDS ORDERED: FENTAnyl 2MCG/ML-ROPIV 0.2% 100 ML BAG EPI SCH (21:30)
[2018-04-21] MEDS ORDERED: ONDANSETRON 4 MG INJ IV PRN (21:30)
[2018-04-21] MEDS ORDERED: NALOXONE (0.4 MG/ML) INJ IV PRN (21:30)
[2018-04-21] MEDS ORDERED: DIPHENHYDRAMINE 50 MG INJ IV PRN (21:30)
[2018-04-22] MEDS ORDERED: OXYTOCIN 30 UNITS/LR 500 ML IV SCH (01:38)
--- NOTE | 2018-04-22 01:38 | LDN ---
Date/Time of Note Date/Time of Note DATE: 04/22/18 TIME: 01:37 Delivery Summary Weeks of Gestation 40 Placenta Delivered: Spontaneously Meconium: none Episiotomy: No Perineal laceration: 1 Laceration repair: 1st degree peneal laceration repair with 2-0 and 3-0 chromic Anesthesia type: Epidural Estimated blood loss: 150 Sponge & Needle done & correct: Yes All needle counts correct: Yes Any foreign bodies felt in the: No Infant Delivery Information Sex Infant Sex: male Apgars 1 Minute: 9 5 Minute: 9 Suctioning Nose & mouth suctioned at [place]: No Delee suction performed: No Umbilical Cord Umbilical cord with: 3 Vessels Cord presentations: true knot Cord Blood was obtained: Yes NOAH MENEZES MD Apr 22, 2018 01:38
[2018-04-22] MEDS ORDERED: OXYTOCIN 30 UNITS/LR 500 ML IV PRN (02:00)
[2018-04-22] MEDS ORDERED: CARBOPROST 250 MCG INJ IM PRN (02:00)
[2018-04-22] MEDS ORDERED: MISOPROSTOL 200 MCG TAB PR PRN (02:00)
[2018-04-22] MEDS ORDERED: METHYLERGONOVINE 0.2 MG INJ IM PRN (02:00)
[2018-04-22] MEDS ORDERED: NACL 0.9% 3 ML SYG IV SCH (02:00)
--- NOTE | 2018-04-22 02:18 | PREOPHP ---
DATE OF ADMISSION: 04/21/2018 HISTORY OF PRESENT ILLNESS: Ms. Wen Mayer is a 28-year-old 2, para 0, intrauterine pregn fawn at 40 plus weeks' gestational age, originally admitted for induction; however the patient is in labor. She is currently 3 cm, 50% effaced, -2 station, intact. She reports of regular contractions since early this morning. She denies any headache, nausea, vomiting, shortness of breath or visual c hanges. Her care took place with Marquez Araujo MD. PAST MEDICAL HISTORY: None. MEDICATIONS: vitamins. PAST SURGICAL HISTORY: None. OBSTETRICAL HISTORY: x1 vaginal delivery. GYNECOLOGIC HISTORY: 12, regular 3 to 4 days. Denies any sexually transmitted disease. Sexually ac tive with 1 partner. SOCIAL HISTORY: Denies any smoking, drugs or alcohol. FAMILY HISTORY: None. REVIEW OF SYSTEMS: All within normal except history of present illness. PHYSICAL EXAMINATION: HEENT: Within normal. LUNGS: CTA bilateral. CARDIOVASCULAR: S1, S2. Regular rate, rhythm. ABDOMEN: Gravid, nontender. Negative CVA bilateral. EXTREMITIES: Negative edema. No calf tenderness. PELVIC: Vaginal exam on admission: 3 cm, 50% effaced, -2 station, intact. heart tracing chito gory 1. Tocometer: Regular contractions. ASSESSMENT: Intrauterine at term, admitted for labor augmentation and anticipate vaginal d elivery. Dictated By: MARQUEZ MARVIN/DAWIT Conf#: [id number] DID#: [id number]
--- NOTE | 2018-04-22 02:22 | DELSUM ---
Delivery Summary A-C Datetime Report Generated by CPN: 04/22/2018 02:22 DELIVERY PERSONNEL Box Shook Patcher: Martinez, Rayne MATERNAL INFORMATION Delivery Anesthesia: Epidural Medications in Delivery: 30 UNIT PITOCIN Delivery QBL (ml): 150 Placenta Cultured: No Maternal Complications: None LABOR SUMMARY EDC: 04/19/2018 00:00 No. Babies in Womb: 1 Attempted: No Labor Anesthesia: Epidural LABOR INFORMATION Reason for Induction: Not Applicable Onset of Labor: 04/21/2018 11:00 Complete Dilatation: 04/22/2018 00:47 Oxytocin: Augmentation Group B Beta Strep: Negative Antibiotics # of Doses: 0 Steroids Given: None Reason Steroids Not Administered: Not Applicable MEMBRANES Membranes Rupture Method: Spontaneous Rupture of Membranes: 04/22/2018 00:09 Length of Rupture (hr): 1.20 Amniotic Fluid Color: Clear Amniotic Fluid Amount: Small Amniotic Fluid Odor: None STAGES OF LABOR Stage 1 hr: 13 Stage 1 min: 47 Stage 2 hr: 0 Stage 2 min: 34 Stage 3 hr: 0 Stage 3 min: 2 Total Time in Labor hr: 14 Total Time in Labor min: 23 VAGINAL DELIVERY Episiotomy: None Laceration Extension: First Degree Laceration Type: Perineal Laceration Repair: Yes Initial Vag Sponge Count: 10 Final Vag Sponge Count: 10 Initial Vag Sharps Count: 1 Final Vag Sharps Count: 4 Sponge Count Correct: Yes; Vaginal Sweep Performed Sharps Count Correct: Yes BABY A INFORMATION Infant Delivery Date/Time: 04/22/2018 01:21 Method of Delivery: Vaginal Born in Route : No : N/A Forceps: N/A Vacuum Extraction: N/A Shoulder Dystocia : N/A SHOULDER DYSTOCIA BABY A Infant Delivery Date/Time: 04/22/2018 01:21 PRESENTATION/POSITION BABY A Presentation: Cephalic Presentation: Cephalic Cephalic Presentation: Vertex Vertex Position: Left Occipital Anterior Breech Presentation: N/A PLACENTA INFORMATION BABY A Placenta Delivery Time : 04/22/2018 01:23 Placenta Method of Delivery: Spontaneous Placenta Status: Delivered SCORES BABY A Heart Rate 1 min: >100 bpm Resp Effort 1 min: Good Cry Reflex Irritability 1 min: Cough/Sneeze/Pulls Away Muscle Tone 1 min: Active Motion Color 1 min: Body [place], Extremit Blue Resuscitation Effort 1 min: Tactile Stimulation SCORE 1 MIN: 9 Heart Rate 5 min: >100 bpm Resp Effort 5 min: Good Cry Reflex Irritability 5 min: Cough/Sneeze/Pulls Away Muscle Tone 5 min: Active Motion Color 5 min: Body [place], Extremit Blue Resuscitation Effort 5 min: Tactile Stimulation SCORE 5 MIN: 9 INFANT INFORMATION BABY A Gestational Age at Delivery: 40.3 Gestational Status: Full Term- 39- 40.6 Weeks Infant Outcome : Liveborn Condition : Stable Sex: Male IDENTIFICATION/MEDS BABY A ID Band Number: [id number] ID Band Location: Right Leg; Left Arm Sensor Applied: Yes Sensor Number: [id number] Sensor Location : Cord Clamp Vitamin K Given : Not Given Erythromycin Given: Not Given WEIGHT/LENGTH BABY A Birthweight (gm): 3135 Infant Weight (lb): 6 Weight (oz): 15 Infant Length (in): 18.75 Infant Length (cm): 47.63 CORD INFORMATION BABY A No. Cord Vessels: 3 Nuchal Cord : N/A True Knot: 1 Cord Blood Taken: Yes Suction: Mouth; Nose ASSESSMENT BABY A Complications: None Physical Findings at Delivery: Within Normal Limits Infant Respirations: Appears Normal Brand Engineer/ALS Called : No Infant Care By: Mauricio LIEBERMAN Transferred To: Remains with Mother
[2018-04-22 03:10] VITALS: BP 117/72; PULSE 71; RESP 18
[2018-04-22 04:10] VITALS: BP 118/78; PULSE 68; RESP 19
[2018-04-22] MEDS: LANOLIN HPA 1 PKT TOP PRN (04:17)
[2018-04-22] MEDS: WITCH HAZEL/GLYCERIN PAD PR PRN (04:17)
[2018-04-22] MEDS: OXYCODONE/ASPIRIN (4.88/325) TAB PO PRN ×6 (04:18→21:31)
[2018-04-22] MEDS: IBUPROFEN 600 MG TAB PO SCH ×3 (05:37→17:08)
[2018-04-22] MEDS: BENZOCAINE 20% 56 ML SPRAY TOP PRN (05:37)
[2018-04-22 08:00] VITALS: BP 108/75; PULSE 59; RESP 20
[2018-04-22 15:50] VITALS: BP 116/65; PULSE 66; RESP 20
--- NOTE | 2018-04-22 17:38 | PAC ---
Date/Time of Note Date/Time of Note DATE: 04/22/18 TIME: 17:38 Post-Anesthesia Notes Post-Anesthesia Note Last documented vital signs Vital Signs Date Temp Pulse Resp B/P (MAP) Pulse Ox O2 O2 Flow FiO2 Time Delivery Rate 04/22/18 98.1 66 20 116/65 15:50 (82) 04/22/18 Room Air 04:10 Activity: WNL Respiratory function: WNL Cardiovascular function: WNL Mental status: Baseline Pain reasonably controlled: Yes Hydration appropriate: Yes Nausea/Vomiting absent: Yes Comments BP:112/56, P:77, Spo2:100%, T:98,8 NANCY KUHN MD Apr 22, 2018 17:38
[2018-04-22 19:45] VITALS: BP 115/68; PULSE 80; RESP 19
[2018-04-23] MEDS: IBUPROFEN 600 MG TAB PO SCH ×5 (00:04→23:27)
[2018-04-23] MEDS: OXYCODONE/ASPIRIN (4.88/325) TAB PO PRN ×4 (01:38→23:27)
[2018-04-23 03:45] VITALS: BP 116/75; PULSE 72; RESP 18
[2018-04-23 07:50] VITALS: BP 119/76; PULSE 70; RESP 19
[2018-04-23] MEDS: LANOLIN HPA 1 PKT TOP PRN (09:33)
[2018-04-23] MEDS: BENZOCAINE 20% 56 ML SPRAY TOP PRN ×2 (09:33→23:32)
[2018-04-23] MEDS: WITCH HAZEL/GLYCERIN PAD PR PRN ×2 (09:33→23:32)
--- NOTE | 2018-04-23 09:41 | PD.PPDC ---
DRIVER GUIDE Discharge Instruction Condition [id number] Patient Condition: [id number] Good Diet [id number] Diet: Adkaz2c Resume Regular Diet Activity/Restrictions [id number] Activity: Uczde8l Normal Activity May Shower [id number] Restrictions: Evsst2u No Exercising No Lifting No Driving No Sexual Activity Nothing in the Vagina No [place] No Tampons, douche Return to clinic for Deizv8At STANDPIPE TENDER Instructions: [id number] Fever greater than 101 Chills Worsening abdominal pain Excessive Vaginal Bleeding More than 2 pads per hour Unable to tolerate diet [id number] OB Instructions: Gemyb1q Breast Tenderness Depression Blurried Vision Headache [id number] Surgical Instructions: Gzzfm5t Incisional Drainage Incisional Redness NOAH MENEZES MD Apr 23, 2018 09:41
--- NOTE | 2018-04-23 09:42 | DS ---
Date/Time of Note Date/Time of Note DATE: 04/23/18 TIME: 09:42 Obstetrical Discharge Record Final Diagnosis Final Diagnosis: Term delivered Vaginal Delivery Obstetrical Delivery: Spontaneous Condition on Discharge Physical Assessment Last Vitals: stable afebrile Voiding: Yes Bowel Movement: Yes Breast: Soft, non-tender, Filling Fundus: Firm Abdomen and Incision: soft nt Calf Tenderness: No Patient Condition: Fair NOAH MENEZES MD Apr 23, 2018 09:42
[2018-04-23] MEDS ORDERED: SENNA TAB PO SCH (10:00)
[2018-04-23] MEDS: SENNA/DOCUSATE NA (8.6MG/50MG) TAB PO SCH ×2 (12:27→23:27)
[2018-04-23 15:59] VITALS: BP 128/63; PULSE 65; RESP 20
[2018-04-23 20:00] VITALS: BP 112/58; PULSE 76; RESP 18
[2018-04-24 04:00] VITALS: BP 110/58; PULSE 72; RESP 17
[2018-04-24] MEDS: IBUPROFEN 600 MG TAB PO SCH ×2 (06:20→11:26)
[2018-04-24] MEDS: OXYCODONE/ASPIRIN (4.88/325) TAB PO PRN (06:20)
[2018-04-24 08:00] VITALS: BP 123/76; PULSE 68; RESP 18
[2018-04-24] MEDS: SENNA/DOCUSATE NA (8.6MG/50MG) TAB PO SCH (08:37)
== END 2018-04-24 12:55 | disposition home or self-care (01) | DRG 807 ==
LOC: EDSTATUS 09:25 → L-D 04-21 09:25 → PP1 04-22 03:10
PROVIDERS: ADMIT Obstetrics & Gynecology; ATTEND Obstetrics & Gynecology
PROC: 10E0XZZ Delivery of Products of Conception, External Approach (ICD-10-PCS; principal; 2018-04-21)
PROC: 0HQ9XZZ Repair Perineum Skin, External Approach (ICD-10-PCS; 2018-04-21)
PROC: 3E033VJ Introduction of Other Hormone into Peripheral Vein, Percutaneous Approach (ICD-10-PCS; 2018-04-21)
DX: O48.0 Post-term pregnancy (principal); Z37.0 Single live birth; Z3A.40 40 weeks gestation of pregnancy; O70.0 First degree perineal laceration during delivery; O69.2XX0 Labor and delivery complicated by other cord entanglement, with compression, not applicable or unspecified
CPT/HCPCS: 62319; 76815; 76818; 85014; 85018; 85025; 85610; 85730; 86592; 86850; 86900; 86901; 87340; J2590; J3010; J7120